=== PATIENT | female | born 1965 | race Caucasian/White ===

== ENCOUNTER 2018-12-21 07:30 | Outpatient (CLI) | payer BC ==
--- NOTE | 2018-12-21 09:01 | ULT ---
LIMITED RIGHT BREAST ULTRASOUND: Date: 11/09/18 PROVIDED CLINICAL HISTORY: Abnormal screening mammogram. FINDINGS: Limited sonographic interrogation of the retroareolar portion of the right breast was performed in th e region of mammographic concern as reported on the screening mammogram of 11/09/18. The sonographic appearance of the breast tissue in the interrogated regions is normal. IMPRESSION: No sonographic abnormality is evident in the region of reported mammographic concern. POS: OFF
== END 2018-12-21 07:31 | disposition home or self-care (01) ==
LOC: BICMAMMO 07:30
PROVIDERS: ATTEND Obstetrics & Gynecology
DX: N63.10 Unspecified lump in the right breast, unspecified quadrant (principal)

== ENCOUNTER 2019-03-15 20:30 | Outpatient (CLI) | payer BC | END 2019-03-15 20:31 | disposition home or self-care (01) | LOC: SLEEPLAB 20:30 | PROVIDERS: ATTEND Internal Medicine | DX: G47.33 Obstructive sleep apnea (adult) (pediatric) (principal); R53.83 Other fatigue; I10 Essential (primary) hypertension; E66.9 Obesity, unspecified | CPT/HCPCS: 95810 ==

== ENCOUNTER 2023-07-27 08:02 | Outpatient (CLI) | payer BC ==
[2023-07-27] MEDS ORDERED: Iopamidol 370 76% 100 ML VIAL ONE (10:49)
== END 2023-07-27 08:03 | disposition home or self-care (01) ==
LOC: BICCT 08:02
PROVIDERS: ATTEND Family Medicine
DX: R10.31 Right lower quadrant pain (principal); D17.71 Benign lipomatous neoplasm of kidney
CPT/HCPCS: 74177

== ENCOUNTER 2023-09-03 11:54 | Outpatient (CLI) | payer BC | END 2023-09-03 11:55 | disposition home or self-care (01) | LOC: BICMAMMO 11:54 | PROVIDERS: ATTEND Family Medicine | DX: Z12.31 Encounter for screening mammogram for malignant neoplasm of breast (principal) | CPT/HCPCS: 77063; 77067 ==